=== PATIENT | male | born 1965 | race Caucasian/White ===

== ENCOUNTER 2016-11-13 07:29 | Day surgery (SDC) | payer BC ==
--- NOTE | ~2016-11-13 | EGD ---
EGD REPORT [facility] [address] [id number] NAME: ASHUTOSH BOTELLO : 65 STATUS : REG [facility] [place] PAT#: [id number] AGE: 51 ADM/REG DATE : 11/13/16 MR#: [id number] REPORT SERV DATE: 11/13/16 DICTATED BY: LEEANN AMANDA DATE: 11/13/16 REPORT STATUS : Draft TRANS[facility]IBED [facility]: [facility] DATE: 11/13/16 Endoscopy Center Patient Name: Ashutosh Botello Date of : 1965 Attending MD: PAUL AMANDA MD Procedure Date No Time: 11/13/2016 Procedure: Colonoscopy Indications: Screening for colorectal malignant neoplasm, This is the patient's first colonoscopy Referring MD: NASRA BIGGS MD Medicines: See the Anesthesia note for documentation of the administered medications Complications: No immediate complications. Estimated blood loss: None. Procedure: Pre-Anesthesia Assessment: - ASA Grade Assessment: II - A patient with mild systemic disease. - Prior to the procedure, a History and Physical was performed, and patient medications and allergies were reviewed. The patient's tolerance of previous anesthesia was also reviewed. The risks and benefits of the procedure and the sedation options and risks were discussed with the patient. All questions were answered, and informed consent was obtained. Prior Anticoagulants: The patient has taken no previous anticoagulant or antiplatelet agents. After reviewing the risks and benefits, the patient was deemed in satisfactory condition to undergo the procedure. After I obtained informed consent, the scope was passed under direct vision. Throughout the procedure, the patient's blood pressure, pulse, and oxygen saturations were monitored continuously. The PCF [id number] was introduced through the anus and advanced to the terminal ileum. The ileocecal valve, appendiceal orifice, terminal ileum and rectum were photographed. The entire colon was examined. The colonoscopy was performed without difficulty. The patient tolerated the procedure well. The quality of the bowel preparation was adequate. Findings: The perianal and digital rectal examinations were normal. The terminal ileum appeared normal. A sessile polyp was found in the distal transverse colon. The polyp was 3 mm in size. The polyp was removed with a cold biopsy forceps. Resection and retrieval were complete. A sessile polyp was found at the splenic flexure. The polyp was 3 mm in EGD REPORT [address] [address] NAME: ASHUTOSH BOTELLO : [birth year] STATUS : REG [facility]#: [id number] AGE: 51 ADM/REG DATE : 11/13/16 MR#: [id number] REPORT SERV DATE: 11/13/16 DICTATED BY: LEEANN AMANDA DATE: 11/13/16 REPORT STATUS : Draft TRANSCRIBED BY: [facility] DATE: 11/13/16 size. The polyp was removed with a cold biopsy forceps. Resection and retrieval were complete. Non-bleeding internal hemorrhoids were found during retroflexion and were Grade I (internal hemorrhoids that do not prolapse). No other significant abnormalities were identified in a careful examination of the remainder of the colon. Impression: - The examined portion of the ileum was normal. - One 3 mm polyp in the distal transverse colon. Resected and retrieved. - One 3 mm polyp at the splenic flexure. Resected and retrieved. - Non-bleeding internal hemorrhoids. Recommendation: - Patient has a contact number available for emergencies. The signs and symptoms of potential delayed complications were discussed with the patient. Return to normal activities tomorrow. Written discharge instructions were provided to the patient. - Regular diet. - Discharge patient to home. - Continue present medications. - Await pathology results. - Repeat colonoscopy in 5 years for surveillance. Procedure Code(s): --- Professional --- 22961, Colonoscopy, flexible, proximal to splenic flexure; with biopsy, single or multiple Diagnosis Code(s): --- Professional --- K64.0, First degree hemorrhoids D12.3, Benign neoplasm of transverse colon Z12.11, Encounter for screening for malignant neoplasm of colon CPT copyright 2013 [employer]. All rights reserved. The codes documented in this report are preliminary and upon airplane dispatcher review may be revised to meet current compliance requirements. PAUL AMANDA MD 11/13/2016 8:43 AM This report has been signed electronically. Number of Addenda: 0 EGD REPORT [facility] [address] [id number] NAME: ASHUTOSH BOTELLO : 65 STATUS : REG [facility] [place] PAT#: [id number] AGE: 51 ADM/REG DATE : 11/13/16 MR#: [id number] REPORT SERV DATE: 11/13/16 DICTATED BY: LEAENN AMANDA DATE: 11/13/16 REPORT STATUS : Draft TRANSCRIBED BY: [facility] DATE: 11/13/16 Note Initiated On: 11/13/2016 8:12 AM Scope Withdrawal Time 0 hours 10 minutes 27 seconds [address] [id number]
[~2016-11-13 07:29] MED LIST: CO Q-10100 MG PO; FISH-EPA1000 MG PO; MULTIPLE VIT PO; ZOCOR20 PO
== END 2016-11-13 23:59 | disposition home or self-care (01) ==
LOC: DMU 07:29
PROVIDERS: Internal Medicine Gastroenterology
PROC: 0DBL8ZZ Excision of Transverse Colon, Via Natural or Artificial Opening Endoscopic (ICD-10-PCS; principal; 2016-11-13 09:30)
DX: Z12.11 Encounter for screening for malignant neoplasm of colon (principal); D12.3 Benign neoplasm of transverse colon; K64.0 First degree hemorrhoids; E78.00 Pure hypercholesterolemia, unspecified; Z86.19 Personal history of other infectious and parasitic diseases; Z98.890 Other specified postprocedural states; Z79.899 Other long term (current) drug therapy
CPT/HCPCS: 88305